=== PATIENT | male | born 1990 | race Caucasian/White ===

== ENCOUNTER 2023-03-15 08:07 | Outpatient (CLI) | payer OTHER | END 2023-03-15 08:17 | disposition home or self-care (01) | LOC: NUCLEAR 08:07 | PROVIDERS: ATTEND Internal Medicine Pulmonary Disease | DX: S23.41XA Sprain of ribs, initial encounter (principal) ==

== ENCOUNTER → 2023-03-15 | Outpatient (CLI) | payer OTHER | END | disposition home or self-care (01) | LOC: RAD 08:40 | PROVIDERS: ATTEND Internal Medicine Pulmonary Disease | DX: J45.901 Unspecified asthma with (acute) exacerbation (principal) ==

== ENCOUNTER 2024-02-20 09:20 | Outpatient (CLI) | payer OTHER | END 2024-02-20 14:07 | disposition home or self-care (01) | LOC: TOM 09:20 | DX: J45.21 Mild intermittent asthma with (acute) exacerbation (principal); D72.819 Decreased white blood cell count, unspecified ==